=== PATIENT | male | born 1990 | race Caucasian/White ===

== ENCOUNTER 2018-04-22 18:56 | Emergency (ER) | payer OTHER, BC ==
[2018-04-22 19:03] VITALS: BP 150/81
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
== END 2018-04-22 19:50 | disposition home or self-care (01) ==
LOC: ER 18:56
DX: S41.112A Laceration without foreign body of left upper arm, initial encounter (principal); S16.1XXA Strain of muscle, fascia and tendon at neck level, initial encounter; S46.912A Strain of unspecified muscle, fascia and tendon at shoulder and upper arm level, left arm, initial encounter; M54.2 Cervicalgia; M54.9 Dorsalgia, unspecified; M25.50 Pain in unspecified joint; M79.1 Myalgia; M25.512 Pain in left shoulder; V87.7XXA Person injured in collision between other specified motor vehicles (traffic), initial encounter; F17.210 Nicotine dependence, cigarettes, uncomplicated
CPT/HCPCS: 99283